=== PATIENT | female | born 1945 | race Caucasian/White ===

== ENCOUNTER 2025-04-20 02:09 | Observation (INO) ==
--- NOTE | 2025-04-20 02:31 | EKG ---
Test Reason : ams Blood Pressure : */* mmHG Vent. 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
--- NOTE | 2025-04-20 02:54 | DR.AMS ---
HPI Time Seen Time Seen by Provider: 04/20/25 02:51 PCP Primary Care Physician: Dr. Egan HPI Comment HPI Comment: According to family patient lives alone since her in Aug 2024.Her son lives nearby and visits her regularly .Pt has been noted to have had multiple falls at home with acute onset of confusion to a point where she does not recall what she did .She has been noted to be talking to people who are not at home .Family thinks this is getting worse. Called EMS and brought patient to ER .Family not sure which medication patient has been taking or if any medication has been changed.pt has been seen by neurology over 4 months ago work up was done without significant improvement adn or suggestions Complaint Cheif Complaint Doctors Comments: confused and multiple falls Chief Complaint:: Patient brought in er via ems with complaints of frequent falls and AMS. Per family member pt has had intermittent episodes of confusion for months. Pt has been evaluated by neurology with normal results. Daughter states confusion has worsened with hallucinations and multiple falls today. pt complains of back and head pain. COVID-19 Coronavirus risk:travel/contact w/high risk person: No Has patient experienced Coronavirus symptoms: No Reviewed Nurses Notes Reviewed: Yes Source History Provided: Patient, Family Member and EMS Mode of Arrival Mode of Arrival: EMS Timing Onset of Chief Complaint: 04/19/25 Came On: Gradually Duration Duration: Since Onset Duration: Weeks Quality Quality: Decreased Alertness, Change in Behavior, Confusion and Memory Loss Severity Severity: Moderate Context Recent: None History Of: None PMH PMH Past Medical History: Yes Past Medical History: Anxiety, Arthritis, Dyslipidemia and GERD Past Medical History Comment: Fibromyalgia, Past Surgical History: Yes Surgical History: Cholecystectomy, [employer] Surgery and Hysterectomy Family History History of Family Medical Conditions: Yes Family Medical History: [place] and Coronary Artery Disease Social History Does patient currently use any type of tobacco product: No Have you used tobacco products in the last 12 months: No Type of Tobacco Use: None Does any household member use tobacco: No Alcohol Use: None Do you use any recreational Drugs:: No Lives With: Family Lives Where: Home Travel Risk Coronavirus risk:travel/contact w/high risk person: No Has patient experienced Coronavirus symptoms: No Infectious screening Have you traveled outside the country in the last 6 months?: No Isolation: Standard ROS Review of Systems Constitutional: Malaise Eyes: No Symptoms Reported ENTM: No Symptoms Reported Respiratoy: No Symptoms Reported Cardiovascular: No Symptoms Reported Gastrointestinal/Abdominal: No Symptoms Reported Genitourinary: No Symptoms Reported Neurological: Problems Walking and Speech Problem Musculoskeletal: Back Pain and Joint Pain Integumentary: Rash Hematologic/Lymphatic: No Symptoms Reported Endocrine: No Symptoms Reported Psychiatric: Hallucinations PE Vitals Vital Signs: Temp Pulse Resp BP Pulse Ox O2 Del Method 04/20/25 04:30 89 18 99 04/20/25 04:30 116/64 04/20/25 04:15 89 16 98 04/20/25 04:00 138/63 04/20/25 04:00 91 H 21 95 04/20/25 03:45 89 18 04/20/25 03:30 132/60 04/20/25 03:30 132/60 04/20/25 03:30 92 H 20 04/20/25 03:18 94 H 22 95 04/20/25 03:00 94 H 93 L 04/20/25 02:45 95 H 22 93 L 04/20/25 02:30 96 H 22 94 L 04/20/25 02:30 123/62 04/20/25 02:30 123/62 04/20/25 02:14 98.7 F 95 H 19 133/64 98 Room Air General Limitations: Altered Mental Status General Appearance: Alert and Lethargic Head Head Exam: Normal Inspection, Atraumatic and Normocephalic Eyes Eye exam: Normal Appearance, PERRL and EOMI Pupils: Regular, Round: Bilateral ENT ENT Exam: Mucous Membranes Moist TM/Canal Exam: Bilateral: Normal Throat Exam: Normal Inspection Neck Neck Exam: Normal Inspection, Full ROM and Trachea Midline Chest Chest Inspection: Normal Inspection and Symmetric Chest Wall Rise Respiratory Respiratory Exam: Normal Lung Sounds Bilat Respiratory Exam: Bilateral: Clear to Auscultation (except occasional crackle ) Cardiovascular Cardiovascular Exam: +S1 and +S2 Abdominal Exam Abdominal Exam: Normal Inspection, Normal Bowel Sounds and Soft Extremities Extremities Exam: Normal Inspection, Full ROM and Other (? leg length discrepancy ) Back Back Exam: Normal Inspection Neurological Neurological Exam: Alert and Reflexes Normal Patient Oriented To: Person Speech: Expressive Aphasia Psychological Psychiatric Exam: Flat Affect Skin Skin Exam: Other (pos thickened skin over face ) MDM Additional Information Obtained Additional Information Obtained From: Old Records and Family Findings: altered mental status ,unsteadty gait ,leg length dis Differential Diagnosis Metabolic: Dehydration Structural: Closed Head Injury, CVA and Mass Lesion Toxicologic: Medication Toxicity Infectious: UTI COURSE Treatment Treatment: labs ,ct head ROR Labs Reviewed Laboratory Results Reviewed?: Yes 04/20/25 02:51 04/20/25 02:51 Laboratory: WBC 11.5 X10^3/uL (3.6-10.0) H 04/20/25 02:51 RBC 4.19 X10^6/uL (3.5-5.4) 04/20/25 02:51 Hgb 13.1 g/dL (12.0-16.0) 04/20/25 02:51 Hct 38.1 % (36.0-47.0) 04/20/25 02:51 MCV 91.0 fL (80.0-100.0) 04/20/25 02:51 MCH 31.3 pg (27.0-34.0) 04/20/25 02:51 MCHC 34.4 g/dL (33.0-35.0) 04/20/25 02:51 RDW 14.1 % (11.6-16.5) 04/20/25 02:51 Plt Count 177 X10^3/uL (150.0-450.0) 04/20/25 02:51 MPV 9.4 fL (7.4-11.0) 04/20/25 02:51 Neut % (Auto) 77.8 % (42.0-75.0) H 04/20/25 02:51 Lymph % (Auto) 11.2 % (21.0-51.0) L 04/20/25 02:51 [place] % (Auto) 9.1 % (0.0-13.0) 04/20/25 02:51 Eos % (Auto) 1.2 % (0.9-2.9) 04/20/25 02:51 Baso % (Auto) 0.7 % (0.2-1.0) 04/20/25 02:51 Neut # (Auto) 9.0 x10^3/uL (2.2-4.8) H 04/20/25 02:51 Lymph # (Auto) 1.3 X10^3/uL (1.3-2.9) 04/20/25 02:51 [place] # (Auto) 1.0 x10^3/uL (0.3-0.8) H 04/20/25 02:51 Eos # (Auto) 0.1 x10^3/uL (0.0-0.2) 04/20/25 02:51 Baso # (Auto) 0.1 X10^3/uL (0.0-0.1) 04/20/25 02:51 Absolute Nucleated RBC 0.1 /100WBC 04/20/25 02:51 Sodium 140 mmol/L (136-145) 04/20/25 02:51 Corrected Sodium TNP 04/20/25 02:51 Potassium 3.8 mmol/L (3.5-5.1) 04/20/25 02:51 Chloride 102 mmol/L (98-107) 04/20/25 02:51 Carbon Dioxide 26.0 mmol/L (21-32) 04/20/25 02:51 BUN 16 mg/dL (7-18) 04/20/25 02:51 Creatinine 1.42 mg/dL (0.55-1.02) H 04/20/25 02:51 Est GFR (MDRD) Af Amer 46 (>60) L 04/20/25 02:51 Est GFR (MDRD) Non-Af 38 (>60) L 04/20/25 02:51 Glucose 92 mg/dL (65-99) 04/20/25 02:51 Calcium 9.9 mg/dL (8.5-10.1) 04/20/25 02:51 Corrected Calcium TNP 04/20/25 02:51 Total Bilirubin 0.60 mg/dL (0.2-1.0) 04/20/25 02:51 AST 24 Units/L (15-37) 04/20/25 02:51 ALT 17 Units/L (12-78) 04/20/25 02:51 Alkaline Phosphatase 84 Units/L (46-116) 04/20/25 02:51 Creatine Kinase 191 Units/L (26-192) 04/20/25 02:51 Troponin I High Sens 12.0 ng/L (4.0-60.0) 04/20/25 02:51 Total Protein 8.3 g/dL (6.4-8.2) H 04/20/25 02:51 Albumin 4.3 g/dL (3.4-5.0) 04/20/25 02:51 Globulin 4.0 g/dL (2.5-4.5) 04/20/25 02:51 Albumin/Globulin Ratio 1.1 Ratio (1.1-2.1) 04/20/25 02:51 Specimen Type Catherized urine 04/20/25 03:00 Urine Color Yellow (YELLOW) 04/20/25 03:00 Urine Appearance Clear (CLEAR) 04/20/25 03:00 Urine pH 6.0 (5.0 - 8.0) 04/20/25 03:00 Ur Specific [place] 1.010 (1.000-1.030) 04/20/25 03:00 Urine Protein 1+ (NEGATIVE) 04/20/25 03:00 Urine Glucose (UA) Negative (NEGATIVE) 04/20/25 03:00 Urine Ketones Negative (NEGATIVE) 04/20/25 03:00 Urine Blood 1+ (NEGATIVE) 04/20/25 03:00 Urine Nitrite Negative (NEGATIVE) 04/20/25 03:00 Urine Bilirubin Negative (NEGATIVE) 04/20/25 03:00 Urine Urobilinogen Normal (NORMAL) 04/20/25 03:00 Ur Leukocyte Esterase Negative (NEGATIVE) 04/20/25 03:00 Urine RBC 3-5 /HPF (0-3) A 04/20/25 03:00 Urine WBC None seen /HPF (0-5) 04/20/25 03:00 Ur Squamous Epith Cells Negative /HPF (NEGATIVE) 04/20/25 03:00 Urine Bacteria Negative /HPF (NEGATIVE) 04/20/25 03:00 Hyaline Casts Few /LPF (NEGATIVE) 04/20/25 03:00 Ur Culture Indicated? No/not indicated 04/20/25 03:00 Opioid Opioid Risk Tool Age (Rex box if 16-45): No History of Preadolescent Sexual Abuse: No Total: 0 Total Score Risk Category: Low Risk Copyright: Parag KAHN predicting aberrant behaviors Discharge Plan Diagnosis Discharge Problem: Acute alteration in mental status, Dehydration, Acute renal failure superimposed on stage 3b chronic kidney disease, Multiple falls, Unsteady gait, Leucocytosis Discharge Plan Patient Disposition: 09 ADMITTED INPATIENT Condition: Stable Prescriptions: Discontinued alprazolam 2 mg Tablet 2 mg PO BID PRN gabapentin 300 mg capsule 300 mg PO QID hydroxyzine pamoate 25 mg capsule 25 mg PO BID rosuvastatin 5 mg tablet 5 mg PO QDAY duloxetine 30 mg capsule,delayed release(DR/EC) 30 mg PO QDAY Health Concerns: Post Hospitalization: new medications and changes needed to prevent readmission or further decline. Pt educated and given instructions on all concerns. Plan of Treatment: Continue with present treatment and follow up plan. Pt is to keep follow up appointment as instructed and take medications as ordered. Orders to Discharge Patient Discharge Orders: Transfer (Routine); Ordered 04/20/25 Ordered By: Elver Marcelo Follow ups/Referrals Follow ups/Referrals: [facility],None [Primary Care Provider] - 3 days Instructions Stand Alone Forms: Find Help Web Site, Post Hospital Follow Up Care Print Language: LITHUANIAN Provider Note Additional Notes altered mental status, elevated wbc, no acute ct head changes, stage 3b renal failure, basal cell ca face ,unsteady gait ,multiple falls .Spoke with dr Phillips .Agreed to have patient admitted
[2025-04-20 03:01] LABS: MEAN PLATELET VOLUME 9.4 fL (7.4-11.0); RED CELL DISTRIBUTION WIDTH 14.1 % (11.6-16.5)
[2025-04-20 03:05] LABS: BLOOD/HEMOGLOBIN,URINE 1+ (NEGATIVE); LEUKOCYTE ESTERASE ,URINE NEGATIVE (NEGATIVE); NITRITES,URINE NEGATIVE (NEGATIVE)
[2025-04-20 03:09] LABS: APPEARANCE,URINE CLEAR (CLEAR)
[2025-04-20 03:12] LABS: HYALINE CASTS, URINE FEW /LPF (NEGATIVE); SQUAMOUS EPITHELIAL CELL,UR NEGATIVE /HPF (NEGATIVE)
[2025-04-20 03:18] LABS: CREATININE 1.42 mg/dL (0.55-1.02); eGFR NON BLACK RACES 38 (>60)
--- NOTE | 2025-04-20 04:01 | CT ---
PROCEDURE: CT Head without IV Contrast. HISTORY: AMS WITH FALLS; ANXIETY, ARTHRITIS, GERD, FIBROMYALGIA SX: ALBA, HYST . TECHNIQUE: Axial images were performed through the head without the administration of IV contrast with multiplanar reformations . Dose reduction techniques including Automated Exposure Control (AEC) and adjustment of mA and kV were utilized . COMPARISON: 07/15/2024. TECHNICAL QUALITY: Satisfactory. FINDINGS: Brain shows no mass, hemorrhage, or acute stroke. [id number] periventricular old micro ischemic changes. Mild diffuse cerebral and cerebellar atrophy. Ventricles are normal size for patient's age. No acute skull or scalp abnormality. Visualized sinuses and mastoids are clear. IMPRESSION: No acute intracranial abnormality. Senescent changes. THIS IS AN ELECTRONICALLY VERIFIED FINAL REPORT 04/20/2025 3:58 AM - Electronically signed by Bon Gonzalez MD
[2025-04-20] MEDS: ROCEPHIN VIAL 1 GRAM IVP ONE (04:36)
[2025-04-20] MEDS: ROCEPHIN VIAL 1 GRAM 1 G in NS 100 ML IV 100 ML IV SCH (05:28)
[2025-04-20 06:40] VITALS: BMI 24.1
--- NOTE | 2025-04-20 06:58 | RAD ---
EXAMINATION: CHEST, 1 VIEW HISTORY: ABNORMAL SOUNDS ; ANXIETY, ARTHRITIS, GERD, FIBROMYALGIA SX: ALBA, HYST . COMPARISON STUDY: Chest x-ray 08/12/2021 TECHNIQUE: Single portable AP view of the chest FINDINGS: Lungs are expanded. Patchy infiltrate left pulmonary base. Heart size and pulmonary vascular pattern appear normal. Bones appear intact IMPRESSION: Patchy infiltrate left pulmonary base. THIS IS AN ELECTRONICALLY VERIFIED FINAL REPORT 04/20/2025 6:55 AM - Electronically signed by Kiersten Montanez MD
[2025-04-20] MEDS: NS 1,000 ML IV 1,000 ML IV SCH (07:00)
[2025-04-20] MEDS ORDERED: PHARMACY CONSULT XX SCH (09:00)
[2025-04-20] MEDS: PULMICORT NEB TX 0.5 MG NEB SCH (09:45)
--- NOTE | 2025-04-20 10:01 | DR.H&P ---
H&P History & Physical for Day of: H&P Date: 04/20/25 Chief Complaint Chief Complaint: AMS, falls History of Present Illness History of Present Illness: Patient is a 79y/o female with a PMH of anxiety, arthritis, HLD and GERD presented with confusion and multiple falls. Daughter states patient has been falling at home for the past few weeks and was noted to be confused yesterday. She lives alone. She has not been eating/drinking much. ER workup included labs which showed slight elevation in BUN/creatinine. UA was negative. CT brain was negative for any acute changes. Chest x-ray did show left base patchy infiltrate. She was started on IV antibiotics and fluids. She denies any fever, chills, cough. Denies nausea, vomiting or diarrhea. Labs/imaging reviewed: - WBC 11.5 hemoglobin 13.1 potassium 3.8 creatinine 1.42 - Chest x-ray reviewed Plan: [facility] Continue Rocephin, add azithromycin. Add bronchodilators, IS. Replace electrolytes as per protocol. Continue hydration. PT/OT. Fall precautions. Resume home medications as appropriate. Patient is a poor historian and states she has not been taking most of her medicines. She reports taking pain medicine as needed for leg pain. Monitor a.m. labs and imaging. Time spent for clinical assessment, reviewing labs/imaging, physical exam, decision making and documentation greater than 45 mins. Past Medical History Past Medical History: Anxiety, Arthritis, Dyslipidemia and GERD Past Surgical History Surgical History: and Hysterectomy Family History Family Medical History: Heart Failure Social History Does patient currently use any type of tobacco product: No Have you used tobacco products in the last 12 months: No Type of Tobacco Use: None Does any household member use tobacco: No Alcohol Use: None Drug Use: None Medications Home Medications: Home Medications Medication Instructions Recorded Confirmed Type alprazolam 2 mg tablet 2 mg PO BID PRN 05/22/19 History gabapentin 300 mg capsule 300 mg PO QID 08/03/2107/15 History duloxetine 30 mg capsule,delayed 30 mg PO QDAY 5 07/15/24 History release hydroxyzine pamoate 25 mg capsule 25 mg PO BID 5 07/15/24 History rosuvastatin 5 mg tablet 5 mg PO QDAY 07/15/24 History Allergies Allergies Allergy/AdvReac Type Severity Reaction Status Date / Time No Known Drug Allergies Allergy Verified 04/20/25 09:47 Labs 04/20/25 02:51 04/20/25 02:51 Labs: Laboratory WBC 11.5 X10^3/uL (3.6-10.0) H 04/20/25 02:51 RBC 4.19 X10^6/uL (3.5-5.4) 04/20/25 02:51 Hgb 13.1 g/dL (12.0-16.0) 04/20/25 02:51 Hct 38.1 % (36.0-47.0) 04/20/25 02:51 MCV 91.0 fL (80.0-100.0) 04/20/25 02:51 MCH 31.3 pg (27.0-34.0) 04/20/25 02:51 MCHC 34.4 g/dL (33.0-35.0) 04/20/25 02:51 RDW 14.1 % (11.6-16.5) 04/20/25 02:51 Plt Count 177 X10^3/uL (150.0-450.0) 04/20/25 02:51 MPV 9.4 fL (7.4-11.0) 04/20/25 02:51 Neut % (Auto) 77.8 % (42.0-75.0) H 04/20/25 02:51 Lymph % (Auto) 11.2 % (21.0-51.0) L 04/20/25 02:51 [place] % (Auto) 9.1 % (0.0-13.0) 04/20/25 02:51 Eos % (Auto) 1.2 % (0.9-2.9) 04/20/25 02:51 Baso % (Auto) 0.7 % (0.2-1.0) 04/20/25 02:51 Neut # (Auto) 9.0 x10^3/uL (2.2-4.8) H 04/20/25 02:51 Lymph # (Auto) 1.3 X10^3/uL (1.3-2.9) 04/20/25 02:51 [place] # (Auto) 1.0 x10^3/uL (0.3-0.8) H 04/20/25 02:51 Eos # (Auto) 0.1 x10^3/uL (0.0-0.2) 04/20/25 02:51 Baso # (Auto) 0.1 X10^3/uL (0.0-0.1) 04/20/25 02:51 Absolute Nucleated RBC 0.1 /100WBC 04/20/25 02:51 Sodium 140 mmol/L (136-145) 04/20/25 02:51 Corrected Sodium TNP 04/20/25 02:51 Potassium 3.8 mmol/L (3.5-5.1) 04/20/25 02:51 Chloride 102 mmol/L (98-107) 04/20/25 02:51 Carbon Dioxide 26.0 mmol/L (21-32) 04/20/25 02:51 BUN 16 mg/dL (7-18) 04/20/25 02:51 Creatinine 1.42 mg/dL (0.55-1.02) H 04/20/25 02:51 Est GFR (MDRD) Af Amer 46 (>60) L 04/20/25 02:51 Est GFR (MDRD) Non-Af 38 (>60) L 04/20/25 02:51 Glucose 92 mg/dL (65-99) 04/20/25 02:51 Calcium 9.9 mg/dL (8.5-10.1) 04/20/25 02:51 Corrected Calcium TNP 04/20/25 02:51 Magnesium 2.1 mg/dL (2.0-2.9) 04/20/25 02:51 Total Bilirubin 0.60 mg/dL (0.2-1.0) 04/20/25 02:51 AST 24 Units/L (15-37) 04/20/25 02:51 ALT 17 Units/L (12-78) 04/20/25 02:51 Alkaline Phosphatase 84 Units/L (46-116) 04/20/25 02:51 Creatine Kinase 191 Units/L (26-192) 04/20/25 02:51 Troponin I High Sens 12.0 ng/L (4.0-60.0) 04/20/25 02:51 Total Protein 8.3 g/dL (6.4-8.2) H 04/20/25 02:51 Albumin 4.3 g/dL (3.4-5.0) 04/20/25 02:51 Globulin 4.0 g/dL (2.5-4.5) 04/20/25 02:51 Albumin/Globulin Ratio 1.1 Ratio (1.1-2.1) 04/20/25 02:51 Specimen Type Catherized urine 04/20/25 03:00 Urine Color Yellow (YELLOW) 04/20/25 03:00 Urine Appearance Clear (CLEAR) 04/20/25 03:00 Urine pH 6.0 (5.0 - 8.0) 04/20/25 03:00 Ur Specific [place] 1.010 (1.000-1.030) 04/20/25 03:00 Urine Protein 1+ (NEGATIVE) 04/20/25 03:00 Urine Glucose (UA) Negative (NEGATIVE) 04/20/25 03:00 Urine Ketones Negative (NEGATIVE) 04/20/25 03:00 Urine Blood 1+ (NEGATIVE) 04/20/25 03:00 Urine Nitrite Negative (NEGATIVE) 04/20/25 03:00 Urine Bilirubin Negative (NEGATIVE) 04/20/25 03:00 Urine Urobilinogen Normal (NORMAL) 04/20/25 03:00 Ur Leukocyte Esterase Negative (NEGATIVE) 04/20/25 03:00 Urine RBC 3-5 /HPF (0-3) A 04/20/25 03:00 Urine WBC None seen /HPF (0-5) 04/20/25 03:00 Ur Squamous Epith Cells Negative /HPF (NEGATIVE) 04/20/25 03:00 Urine Bacteria Negative /HPF (NEGATIVE) 04/20/25 03:00 Hyaline Casts Few /LPF (NEGATIVE) 04/20/25 03:00 Ur Culture Indicated? No/not indicated 04/20/25 03:00 Review of Systems Constitutional: Weakness Eyes: No Symptoms Reported ENT: No Symptoms Reported Respiratory: No Symptoms Reported Cardiovascular: No Symptoms Reported Gastrointestinal: No Symptoms Reported Genitourinary: No Symptoms Reported Musculoskeletal: No Symptoms Reported Skin: No Symptoms Reported Neurological: Confusion Physical Exam Vital Signs: Vital Signs Temperature 97.5 F Temperature 98.7 F Pulse Rate [Apical] 88 Pulse Rate 93 Pulse Rate 90 Pulse Rate 89 Pulse Rate 89 Pulse Rate 89 Pulse Rate 91 Pulse Rate 89 Pulse Rate 92 Pulse Rate 94 Pulse Rate 94 Pulse Rate 95 Pulse Rate 96 Pulse Rate 95 Respiratory Rate 17 Respiratory Rate 21 Respiratory Rate 19 Respiratory Rate 22 Respiratory Rate 18 Respiratory Rate 16 Respiratory Rate 21 Respiratory Rate 18 Respiratory Rate 20 Respiratory Rate 22 Respiratory Rate 22 Respiratory Rate 22 Respiratory Rate 19 Blood Pressure [Right Arm] 152/67 Blood Pressure 111/79 Blood Pressure 111/79 Blood Pressure 116/64 Blood Pressure 138/63 Blood Pressure 132/60 Blood Pressure 132/60 Blood Pressure 123/62 Blood Pressure 123/62 Blood Pressure 133/64 O2 Sat by Pulse Oximetry 98 O2 Sat by Pulse Oximetry 98 O2 Sat by Pulse Oximetry 99 O2 Sat by Pulse Oximetry 96 O2 Sat by Pulse Oximetry 99 O2 Sat by Pulse Oximetry 98 O2 Sat by Pulse Oximetry 95 O2 Sat by Pulse Oximetry 95 O2 Sat by Pulse Oximetry 93 O2 Sat by Pulse Oximetry 93 O2 Sat by Pulse Oximetry 94 O2 Sat by Pulse Oximetry 98 Oriented: Person Respiratory: Diminished Throughout Cardiovascular: Normal Auscultation: Bowel Sounds: Normal Palpation: Normal Tenderness: Normal Skin: Decreased Turgur Musculoskeletal: Normal Psychiatric: Normal Mood Description: Calm Affect: Normal Speech Pattern: Clear and Delayed Assessment/Plan (1) Multiple falls: Status: Acute (2) Unsteady gait: Status: Acute (3) Acute renal failure superimposed on stage 3b chronic kidney disease: Qualifiers: Acute renal failure type: unspecified Qualified Code(s): N17.9 - Acute kidney failure, unspecified; N18.32 - Chronic kidney disease, stage 3b Status: Acute (4) Dehydration: Status: Acute (5) Acute confusion: Status: Acute (6) Pneumonia: Qualifiers: Laterality: left Lung location: lower lobe of lung Pneumonia type: due to unspecified organism Qualified Code(s): J18.9 - Pneumonia, unspecified organism Status: Acute Review H&P Reviewed: Yes Patient was examined?: Yes
[2025-04-20] MEDS: ZITHROMAX INJ 500 MG VIAL 500 MG in NS 250 ML IV 250 ML IV SCH (10:10)
[2025-04-20] MEDS: CRESTOR TAB 10 MG PO SCH (10:12)
[2025-04-20] MEDS: LOVENOX INJ 30 MG SYR SC SCH (11:00)
[2025-04-20] MEDS: DUONEB 0.5 MG/3 MG (3 mL) NEB SCH (13:38)
[2025-04-21 04:42] LABS: MEAN PLATELET VOLUME 9.8 fL (7.4-11.0); RED CELL DISTRIBUTION WIDTH 14.1 % (11.6-16.5)
[2025-04-21 04:47] LABS: CREATININE 1.11 mg/dL (0.55-1.02); eGFR NON BLACK RACES 51 (>60)
[2025-04-21] MEDS ORDERED: CONSULT PHARMACY - POTASSIUM & MAGNESIUM XX SCH (06:00)
[2025-04-21] MEDS: ROCEPHIN VIAL 1 GRAM 1 G in NS 100 ML IV 100 ML IV SCH (08:57)
[2025-04-21] MEDS: K-DUR TAB 20 MEQ PO SCH (09:03)
[2025-04-21] MEDS ORDERED: TYLENOL 325 MG TAB PO PRN (09:22)
[2025-04-21 11:04] VITALS: TEMP 98.1
[2025-04-21 12:49] VITALS: O2SAT 98
[2025-04-21 16:40] VITALS: BP 134/70; PULSE 98; RESP 18
--- NOTE | 2025-04-23 15:40 | W.DIS.FURT ---
Summary of Discharge Discharge Summary of Date Date of Exam: 04/21/25 Admission Date Date of Admission: 04/20/25 Admission Diagnosis Patient Problems (Updated 04/20/25 @ 09:57 by Prisca Hercules MD) Leucocytosis (Acute) D72.829 Unsteady gait (Acute) R26.81 Multiple falls (Acute) R29.6 Acute renal failure superimposed on stage 3b chronic kidney disease (Acute) N17.9, N18.32 Dehydration (Acute) E86.0 Acute alteration in mental status (Acute) R41.82 Hospital Course: Patient is a 79y/o female with a PMH of anxiety, arthritis, HLD and GERD presented with confusion and multiple falls. Daughter states patient has been falling at home for the past few weeks and was noted to be confused yesterday. She lives alone. She has not been eating/drinking much. ER workup included labs which showed slight elevation in BUN/creatinine. UA was negative. CT brain was negative for any acute changes. Chest x-ray did show left base patchy infiltrate. She was started on IV antibiotics and fluids. She denies any fever, chills, cough. Denies nausea, vomiting or diarrhea. Her labs are monitored daily and electrolytes replaced as needed. She was started on bronchodilators and incentive spirometer. She worked with physical therapy. AIT respiratory panel showed Enterobacter complex and Klebsiella. She was doing well on room air. She was tolerating p.o. intake. She was stable to be discharged home. She will continue to take antibiotics and follow-up with PCP. She will be discharged home with home health services. Vital Signs: Vital Signs (72 hours) 04/20/25 02:14 04/20/25 02:30 04/20/25 02:30 Temperature 98.7 F Pulse Rate 95 H Pulse Rate [Apical] Respiratory Rate 19 Blood Pressure 133/64 123/62 123/62 Blood Pressure [Right Arm] O2 Sat by Pulse Oximetry 98 Oxygen Delivery Method Room Air 04/20/25 02:30 04/20/25 02:45 04/20/25 03:00 Temperature Pulse Rate 96 H 95 H 94 H Pulse Rate [Apical] Respiratory Rate 22 22 Blood Pressure Blood Pressure [Right Arm] O2 Sat by Pulse Oximetry 94 L 93 L 93 L Oxygen Delivery Method 04/20/25 03:18 04/20/25 03:30 04/20/25 03:30 Temperature Pulse Rate 94 H 92 H Pulse Rate [Apical] Respiratory Rate 22 20 Blood Pressure 132/60 Blood Pressure [Right Arm] O2 Sat by Pulse Oximetry 95 Oxygen Delivery Method 04/20/25 03:30 04/20/25 03:45 04/20/25 04:00 Temperature Pulse Rate 89 91 H Pulse Rate [Apical] Respiratory Rate 18 21 Blood Pressure 132/60 Blood Pressure [Right Arm] O2 Sat by Pulse Oximetry 95 Oxygen Delivery Method 04/20/25 04:00 04/20/25 04:15 04/20/25 04:30 Temperature Pulse Rate 89 Pulse Rate [Apical] Respiratory Rate 16 Blood Pressure 138/63 116/64 Blood Pressure [Right Arm] O2 Sat by Pulse Oximetry 98 Oxygen Delivery Method 04/20/25 04:30 04/20/25 04:45 04/20/25 05:00 Temperature Pulse Rate 89 89 Pulse Rate [Apical] Respiratory Rate 18 22 Blood Pressure 111/79 Blood Pressure [Right Arm] O2 Sat by Pulse Oximetry 99 96 Oxygen Delivery Method 04/20/25 05:00 04/20/25 05:00 04/20/25 05:13 Temperature Pulse Rate 90 Pulse Rate [Apical] Respiratory Rate 19 Blood Pressure 111/79 Blood Pressure [Right Arm] O2 Sat by Pulse Oximetry 99 Oxygen Delivery Method Room Air 04/20/25 05:15 04/20/25 07:00 04/20/25 08:00 Temperature 97.5 F L Pulse Rate 93 H Pulse Rate [Apical] 88 Respiratory Rate 21 17 Blood Pressure Blood Pressure [Right Arm] 152/67 O2 Sat by Pulse Oximetry 98 98 Oxygen Delivery Method Room Air Room Air 04/20/25 12:00 04/20/25 13:38 04/20/25 16:00 Temperature 97.7 F 98.2 F Pulse Rate 73 Pulse Rate [Apical] 100 H 94 H Respiratory Rate 18 19 Blood Pressure Blood Pressure [Right Arm] 131/75 135/70 O2 Sat by Pulse Oximetry 99 98 98 Oxygen Delivery Method Room Air Room Air 04/20/25 18:01 04/20/25 19:00 04/20/25 20:00 Temperature Pulse Rate 85 Pulse Rate [Apical] Respiratory Rate Blood Pressure Blood Pressure [Right Arm] O2 Sat by Pulse Oximetry 98 Oxygen Delivery Method Room Air Room Air 04/20/25 20:00 04/20/25 20:00 04/21/25 00:00 Temperature 97.4 F L 97.7 F Pulse Rate 95 H Pulse Rate [Apical] 108 H 114 H Respiratory Rate 18 18 Blood Pressure Blood Pressure [Right Arm] 115/63 132/70 O2 Sat by Pulse Oximetry 95 100 98 Oxygen Delivery Method Room Air Room Air 04/21/25 04:00 04/21/25 07:00 04/21/25 08:00 Temperature 97.9 F 98.1 F Pulse Rate Pulse Rate [Apical] 99 H 106 H Respiratory Rate 18 19 Blood Pressure Blood Pressure [Right Arm] 131/72 138/63 O2 Sat by Pulse Oximetry 96 97 Oxygen Delivery Method Room Air Room Air Room Air 04/21/25 08:36 Temperature Pulse Rate Pulse Rate [Apical] Respiratory Rate Blood Pressure Blood Pressure [Right Arm] O2 Sat by Pulse Oximetry 95 Oxygen Delivery Method Labs: Laboratory Last Values WBC 6.3 X10^3/uL (3.6-10.0) 04/21/25 04:14 RBC 3.90 X10^6/uL (3.5-5.4) 04/21/25 04:14 Hgb 12.2 g/dL (12.0-16.0) 04/21/25 04:14 Hct 35.5 % (36.0-47.0) L 04/21/25 04:14 MCV 91.0 fL (80.0-100.0) 04/21/25 04:14 MCH 31.3 pg (27.0-34.0) 04/21/25 04:14 MCHC 34.4 g/dL (33.0-35.0) 04/21/25 04:14 RDW 14.1 % (11.6-16.5) 04/21/25 04:14 Plt Count 178 X10^3/uL (150.0-450.0) 04/21/25 04:14 MPV 9.8 fL (7.4-11.0) 04/21/25 04:14 Neut % (Auto) 68.5 % (42.0-75.0) 04/21/25 04:14 Lymph % (Auto) 18.4 % (21.0-51.0) L 04/21/25 04:14 Sherman % (Auto) 12.1 % (0.0-13.0) 04/21/25 04:14 Eos % (Auto) 0.5 % (0.9-2.9) L 04/21/25 04:14 Baso % (Auto) 0.5 % (0.2-1.0) 04/21/25 04:14 Neut # (Auto) 4.3 x10^3/uL (2.2-4.8) 04/21/25 04:14 Lymph # (Auto) 1.2 X10^3/uL (1.3-2.9) L 04/21/25 04:14 Sherman # (Auto) 0.8 x10^3/uL (0.3-0.8) 04/21/25 04:14 Eos # (Auto) 0.0 x10^3/uL (0.0-0.2) 04/21/25 04:14 Baso # (Auto) 0.0 X10^3/uL (0.0-0.1) 04/21/25 04:14 Absolute Nucleated RBC 0.3 /100WBC 04/21/25 04:14 Sodium 147 mmol/L (136-145) H 04/21/25 04:14 Corrected Sodium TNP 04/21/25 04:14 Potassium 3.6 mmol/L (3.5-5.1) 04/21/25 04:14 Chloride 112 mmol/L (98-107) H 04/21/25 04:14 Carbon Dioxide 26.4 mmol/L (21-32) 04/21/25 04:14 BUN 8 mg/dL (7-18) 04/21/25 04:14 Creatinine 1.11 mg/dL (0.55-1.02) H 04/21/25 04:14 Est GFR (MDRD) Af Amer > 60 (>60) 04/21/25 04:14 Est GFR (MDRD) Non-Af 51 (>60) L 04/21/25 04:14 Glucose 109 mg/dL (65-99) H 04/21/25 04:14 Calcium 8.9 mg/dL (8.5-10.1) 04/21/25 04:14 Corrected Calcium TNP 04/21/25 04:14 Magnesium 2.1 mg/dL (2.0-2.9) 04/21/25 04:14 Total Bilirubin 0.20 mg/dL (0.2-1.0) 04/21/25 04:14 AST 16 Units/L (15-37) 04/21/25 04:14 ALT 13 Units/L (12-78) 04/21/25 04:14 Alkaline Phosphatase 68 Units/L (46-116) 04/21/25 04:14 Creatine Kinase 191 Units/L (26-192) 04/20/25 02:51 Troponin I High Sens 12.0 ng/L (4.0-60.0) 04/20/25 02:51 Total Protein 7.1 g/dL (6.4-8.2) 04/21/25 04:14 Albumin 3.4 g/dL (3.4-5.0) 04/21/25 04:14 Globulin 3.7 g/dL (2.5-4.5) 04/21/25 04:14 Albumin/Globulin Ratio 0.9 Ratio (1.1-2.1) L 04/21/25 04:14 Specimen Type Catherized urine 04/20/25 03:00 Urine Color Yellow (YELLOW) 04/20/25 03:00 Urine Appearance Clear (CLEAR) 04/20/25 03:00 Urine pH 6.0 (5.0 - 8.0) 04/20/25 03:00 Ur Specific Almond 1.010 (1.000-1.030) 04/20/25 03:00 Urine Protein 1+ (NEGATIVE) 04/20/25 03:00 Urine Glucose (UA) Negative (NEGATIVE) 04/20/25 03:00 Urine Ketones Negative (NEGATIVE) 04/20/25 03:00 Urine Blood 1+ (NEGATIVE) 04/20/25 03:00 Urine Nitrite Negative (NEGATIVE) 04/20/25 03:00 Urine Bilirubin Negative (NEGATIVE) 04/20/25 03:00 Urine Urobilinogen Normal (NORMAL) 04/20/25 03:00 Ur Leukocyte Esterase Negative (NEGATIVE) 04/20/25 03:00 Urine RBC 3-5 /HPF (0-3) A 04/20/25 03:00 Urine WBC None seen /HPF (0-5) 04/20/25 03:00 Ur Squamous Epith Cells Negative /HPF (NEGATIVE) 04/20/25 03:00 Urine Bacteria Negative /HPF (NEGATIVE) 04/20/25 03:00 Hyaline Casts Few /LPF (NEGATIVE) 04/20/25 03:00 Ur Culture Indicated? No/not indicated 04/20/25 03:00 Reason For Visit: ALTERED MENTAL STATUS/LEUCOCYTOSIS/STAGE 3B RENAL Discharge Diagnosis All Active Problems (Updated 04/20/25 @ 09:57 by Prisca Hercules MD) Pneumonia (Acute) Leucocytosis (Acute) Unsteady gait (Acute) Multiple falls (Acute) Acute renal failure superimposed on stage 3b chronic kidney disease (Acute) Dehydration (Acute) Acute alteration in mental status (Acute) Acute confusion (Acute) Fall (Acute) Cystitis (Acute) Multifocal pneumonia (Acute) COVID-19 (Acute) Plan of Treatment: Continue with present treatment and follow up plan. Pt is to keep follow up appointment as instructed and take medications as ordered. Discharge Medications Discharge Medications: No Known Drug Allergies Allergy (Verified 04/20/25 09:47) CONTINUE taking the following medications hydrocodone 10 mg-acetaminophen 325 mg tablet 1 tab PO TID PRN 04/20/25 [History] New Prescriptions albuterol sulfate 90 mcg/actuation aerosol inhaler (Ventolin HFA) 2 puff inhalation Q6H PRN shortness of breath or wheezing #6.7 grams 04/21/25 [Rx] levofloxacin 500 mg tablet 500 mg PO QDAY 5 days #5 tabs 04/21/25 [Rx] Discharge Disposition Discharge Disposition: home with home health Discharge Condition: stable Discharge Plan Discharge Plan Hospital Course: Patient is a 79y/o female with a PMH of anxiety, arthritis, HLD and GERD presented with confusion and multiple falls. Daughter states patient has been falling at home for the past few weeks and was noted to be confused yesterday. She lives alone. She has not been eating/drinking much. ER workup included labs which showed slight elevation in BUN/creatinine. UA was negative. CT brain was negative for any acute changes. Chest x-ray did show left base patchy infiltrate. She was started on IV antibiotics and fluids. She denies any fever, chills, cough. Denies nausea, vomiting or diarrhea. Her labs are monitored daily and electrolytes replaced as needed. She was started on bronchodilators and incentive spirometer. She worked with physical therapy. AIT respiratory panel showed Enterobacter complex and Klebsiella. She was doing well on room air. She was tolerating p.o. intake. She was stable to be discharged home. She will continue to take antibiotics and follow-up with PCP. She will be discharged home with home health services. Patient Disposition: HOME HEALTH SERVICE Condition: Stable Health Concerns: Post Hospitalization: new medications and changes needed to prevent readmission or further decline. Pt educated and given instructions on all concerns. Care Plan Goals: Problem: Pain/Alteration in Comfort Goal: Improve/ Resolve Pain; Achieve Pain Tolerance Instructions: Take pain medications as prescribed. Contact your primary care provider if your pain is unrelieved or worsens. Follow up with primary care provider as directed. Plan of Treatment: Continue with present treatment and follow up plan. Pt is to keep follow up appointment as instructed and take medications as ordered. Prescription drug monitoring program results: PDMP reviewed and no concerns identified Prescriptions: New levofloxacin 500 mg tablet 500 mg PO QDAY 5 Days Qty: 5 0RF albuterol sulfate [Ventolin HFA] 90 mcg/actuation HFA aerosol inhaler 2 puff inhalation Q6H PRN (Reason: shortness of breath or wheezing) Qty: 6.7 0RF Continued rosuvastatin 5 mg tablet 5 mg PO QDAY Discontinued hydroxyzine pamoate 25 mg capsule 25 mg PO BID hydrocodone-acetaminophen 10-325 mg tablet 1 tab PO TID PRN Follow ups/Referrals Follow ups/Referrals: BELTRAN SINGH [STAFF PHYSICIAN, Unknown] - 1 WEEK Rajesh Egan [STAFF PHYSICIAN, MEDICAL] - 04/28/25 10:30 am Instructions Instructions: Fall Prevention in the Home, Adult, [id number], Community-Acqu ired Pneumonia, Adult, [id number] Stand Alone Forms: Excuse From Work or School, Find Help Web Site, [facility] Follow Up Care Print Language: NIGERIAN
== END 2025-04-21 17:00 | disposition home health service (06) ==
LOC: MED/SURG 02:09 → ER 02:09 → MED/SURG 05:32
PROVIDERS: ADMIT Obstetrics & Gynecology Obstetrics; ATTEND Internal Medicine
DX: R44.2 Other hallucinations; N18.32 Chronic kidney disease, stage 3b; B96.89 Other specified bacterial agents as the cause of diseases classified elsewhere; M54.89 Other dorsalgia; M79.7 Fibromyalgia; R26.81 Unsteadiness on feet; R51.9 Headache, unspecified; E87.0 Hyperosmolality and hypernatremia; Z16.29 Resistance to other single specified antibiotic; E78.5 Hyperlipidemia, unspecified; J18.8 Other pneumonia, unspecified organism; R94.4 Abnormal results of kidney function studies; E86.0 Dehydration; R41.0 Disorientation, unspecified; R29.6 Repeated falls; F41.8 Other specified anxiety disorders; K21.9 Gastro-esophageal reflux disease without esophagitis; R26.89 Other abnormalities of gait and mobility; R94.31 Abnormal electrocardiogram [ECG] [EKG]; N17.8 Other acute kidney failure; D72.828 Other elevated white blood cell count; M19.90 Unspecified osteoarthritis, unspecified site